=== PATIENT | female | born 1980 | race Two or more races ===

== ENCOUNTER 2016-12-24 22:46 | Observation (INO) | payer SELFPAY ==
[2016-12-24 23:35] LABS: BILIRUBIN,URINE NEGATIVE (NEG); GLUCOSE,URINE NEGATIVE (NEG); NITRITE,URINE NEGATIVE (NEG); PH,URINE 6.5; PROTEIN,URINE NEGATIVE (NEG-TRACE); UROBILINOGEN,URINE 0.2 mg/dL (0.2 mg/dL)
[2016-12-25 00:33] LABS: BACTERIA,URINE FEW /HPF (0-FEW); RBC,URINE 0 /HPF (0-2); SQUAMOUS EPITHELIAL CELL,UR FEW /LPF; WBC,URINE OCC /HPF (0-4)
== END 2016-12-25 01:45 | disposition home or self-care (01) ==
LOC: 3 SO LND 22:46
PROVIDERS: ADMIT Obstetrics & Gynecology; ATTEND Obstetrics & Gynecology
DX: O62.9 Abnormality of forces of labor, unspecified (principal); Z3A.39 39 weeks gestation of pregnancy
CPT/HCPCS: 81001; G0378; G0379

== ENCOUNTER 2016-12-26 20:17 | Inpatient (IN) | payer MEDICAID ==
[~2016-12-26] VITALS: Ht 162.6 cm; Wt 76.7 kg
[2016-12-26] MEDS: IV RINGERS,LACTATED 1000ML 1,000 ML IV SCH (21:31)
[2016-12-26 21:36] LABS: BARBITURATES NEG (NEG); BENZODIAZEPINES NEG (NEG); BILIRUBIN,URINE NEGATIVE (NEG); CANNABINOIDS NEG (NEG); COCAINE NEG (NEG); GLUCOSE,URINE NEGATIVE (NEG); METHADONE NEG (NEG); NITRITE,URINE NEGATIVE (NEG); OPIATES NEG (NEG); PH,URINE 6.5; PHENCYCLIDINE NEG (NEG); PROTEIN,URINE NEGATIVE (NEG-TRACE)
[2016-12-26 21:43] LABS: BACTERIA,URINE FEW /HPF (0-FEW); SQUAMOUS EPITHELIAL CELL,UR MANY /LPF
[2016-12-26 22:10] LABS: BASO % 0 % (0-3); EOS % 1 % (0-3); HEMATOCRIT 37.1 % (36.0-47.0); HEMOGLOBIN 12.3 g/dL (12.0-15.5); LYMPH # 1.9 x10^3/uL (1.0-4.8); LYMPH % 19 % (24-48); MEAN CORPUSCULAR HEMOGLOBIN 28 pg (25-35); MEAN CORPUSCULAR HGB CONC 33 g/dL (31-37); MEAN CORPUSCULAR VOLUME 84 fL (79-100); MONO % 8 % (0-9); NEUT % 72 % (31-73); PLATELET COUNT 196 x10^3/uL (140-400); RED BLOOD COUNT 4.41 x10^6/uL (3.50-5.40); RED CELL DISTRIBUTION WIDTH 15.1 % (11.5-14.5)
[2016-12-26] MEDS ORDERED: IV RINGERS,LACTATED 1000ML 1,000 ML IV SCH (22:48)
[2016-12-26] MEDS ORDERED: LIDOCAINE 1% PF 30 ML VIAL. INJ PRN (23:00)
[2016-12-26] MEDS ORDERED: TERBUTALINE 1 MG/ML VIAL. SQ PRN (23:00)
[2016-12-26] MEDS ORDERED: BUTORPHANOL 2 MG/ML VIAL. IV PRN ×2 (23:00)
[2016-12-26] MEDS ORDERED: fentaNYL PF VIAL 100 MCG/2 ML VIAL IV PRN (23:00)
[2016-12-26] MEDS ORDERED: OXYTOCIN 30 UNIT/500 ML PREMIX 500 ML IV PRN (23:00)
[2016-12-26] MEDS ORDERED: AMPICILLIN SODIUM 2 GM in IV NORMAL SALINE 100ML 100 ML IV ONE (23:00)
[2016-12-26] MEDS ORDERED: 0.9 % SODIUM CHLORIDE 10 ML DISP.SYRIN. IV PRN (23:00)
[2016-12-26] MEDS ORDERED: DINOPROSTONE 10 MG SUPP.VAG VG ONE (23:30)
[2016-12-26 23:58] VITALS: BP 114/83
[2016-12-27] MEDS ORDERED: AMPICILLIN SODIUM 1 GM in IV NORMAL SALINE 50ML 50 ML IV SCH (03:00)
[2016-12-27] MEDS ORDERED: OXYTOCIN 30 UNIT/500 ML PREMIX 500 ML IV PRN ×2 (07:00→16:15)
[2016-12-27] MEDS: IV RINGERS,LACTATED 1000ML 1,000 ML IV SCH (14:44)
[2016-12-27] MEDS ORDERED: BENZOCAINE 20% TOPICAL AEROSOL SPRAY 57GM CAN. TP PRN (16:15)
[2016-12-27] MEDS ORDERED: ZOLPIDEM 5 MG TABLET. PO PRN (16:15)
[2016-12-27] MEDS ORDERED: ACETAMINOPHEN 325 MG TABLET. PO PRN (16:15)
[2016-12-27] MEDS ORDERED: SIMETHICONE 80 MG TAB.CHEW PO PRN (16:15)
[2016-12-27] MEDS ORDERED: HYDROCORTISONE 1% TOPICAL OINTMENT 30GM TUBE. TP PRN (16:15)
[2016-12-27] MEDS ORDERED: 0.9 % SODIUM CHLORIDE 10 ML DISP.SYRIN. IV PRN (16:15)
[2016-12-27] MEDS ORDERED: PHENYLEPH/MINERAL OIL/PETROLAT RECTAL OINTMENT 28GM TUBE. RC PRN (16:15)
[2016-12-27] MEDS ORDERED: MAG HYDROX/ALUMINUM HYD/SIMETH 30 ML ORAL.SUSP PO PRN (16:15)
[2016-12-27] MEDS ORDERED: diphenhydrAMINE HCL 25 MG CAPSULE PO PRN (16:15)
--- NOTE | 2016-12-27 16:18 | PDOC1 ---
OB - History Hx of Present Care: Good Care Ultrasounds: Normal mid trimester US Obstetrical Complications: None Medical Complications: None Past Family/Social History * Past Medical, Surgical, Family and Obstetric Histories reviewed from chart. Blood Type: O+ Rubella: Immune RPR/VDRL: Negative GBS Status: Unknown HBsAG: Negative OB - Chief Complaint & HPI Date of Admission: Date of Admission: Dec 26, 2016 at 20:17 Chief Complaint/History : 1 EDC: Dec 28, 2016 Reason for admission: induction of labor Indication for induction: other Admission Nurse Assessment Rev: Yes Problems: OB - Admission Exam Physical Exam Vitals: VS - Last 72 Hours, by Label Date Time Temp Pulse Resp B/P (MAP) Pulse Ox O2 Delivery O2 Flow Rate FiO2 12/27/16 14:57 22 Room Air 12/26/16 23:58 98.2 91 18 114/83 (93) Room Air 98.2 HEENT: Normal, Nasal Mucosa Normal, Oropharynx Normal, Moist Membranes, Fontanelles Normal Heart: Regular Rate Lungs: Clear, Equal Abdomen: Gravid Extremities: Normal Pulses, No tenderness or swelling Reflexes: Normal Cervical Dilatation: 1cm Effacement: 25% Station: Ballotable Membranes: Intact Amniotic Fluid: Clear Accelerations: Accelerations Present Assessment/Plan Assessment/Plan TIUP Induction ACSVD Problems: ANIYAH WRIGHT MD Dec 27, 2016 16:18
--- NOTE | 2016-12-27 16:22 | PDOC ---
VAGINAL DELIVERY DATE DATE: 12/27/16 TIME: 16:20 : 3 Para: 1 EDC: Dec 28, 2016 VAGINAL DELIVERY: VTX PLACENTA: Spontaneous SEX: Female WEIGHT 3335gm Amniotic Fluid: Clear PAIN: Local EPISIOTOMY: No EXTENSION: Yes EBL 400cc COMPLICATIONS none CONDITION Stable Signs of Intrauterine Infectio: None Shoulder Dystocia: No DIAGNOSIS TIUP del Problems: ANIYAH WRIGHT MD Dec 27, 2016 16:22
[2016-12-27] MEDS ORDERED: FERROUS SULFATE 325 MG TABLET. PO SCH (17:00)
[2016-12-27] MEDS: IBUPROFEN 600 MG TABLET. PO PRN (17:49)
[2016-12-27 20:30] VITALS: BP 100/64
[2016-12-27 21:30] VITALS: BP 106/64
[2016-12-27] MEDS ORDERED: INFLUENZA VAX SCREEN BY RX. MC PRN (21:30)
[2016-12-27] MEDS: IBUPROFEN 800 MG TABLET. PO SCH (22:48)
[2016-12-28] MEDS: IBUPROFEN 800 MG TABLET. PO SCH ×2 (01:44→09:40)
[2016-12-28] MEDS: HYDROcodone/APAP 5/325MG 1 TAB TABLET PO PRN ×6 (01:56→20:33)
[2016-12-28 02:00] VITALS: BP 108/68
[2016-12-28 05:00] VITALS: BP 97/60
[2016-12-28] MEDS ORDERED: FLU VACC QS2017-18 (36MOS+)/PF 0.5 ML SYRINGE. VAX IM ONE (09:00)
[2016-12-28] MEDS: MAGNESIUM HYDROXIDE 2,400 MG/30 ML ORAL.SUSP. PO PRN (09:58)
--- NOTE | 2016-12-28 13:11 | PDOC ---
OB Progress Note Date of Service 12/28/16 Time of Evaluation 1300 Notes Pt. feeling well. Pain controlled. Lab Laboratory Tests Test 12/26/16 21:15 12/26/16 21:27 12/28/16 03:30 Urine Collection Type Unknown Urine Color Yellow Urine Clarity Clear Urine pH 6.5 Urine Specific Normanna 1.015 Urine Protein Negative mg/dL (NEG-TRACE) Urine Glucose (UA) Negative mg/dL (NEG) Urine Ketones (Stick) Negative mg/dL (NEG) Urine Blood Negative (NEG) Urine Nitrite Negative (NEG) Urine Bilirubin Negative (NEG) Urine Urobilinogen Dipstick 1.0 mg/dL (0.2 mg/dL) Urine Leukocyte Esterase Negative (NEG) Urine RBC 1-2 /HPF (0-2) Urine WBC 1-4 /HPF (0-4) Urine Squamous Epithelial Cells Many /LPF Urine Bacteria Few /HPF (0-FEW) Urine Mucus Slight /LPF Urine Opiates Screen Neg (NEG) Urine Methadone Screen Neg (NEG) Urine Barbiturates Neg (NEG) Urine Phencyclidine Screen Neg (NEG) Urine Amphetamine/Methamphetamine Neg (NEG) Urine Benzodiazepines Screen Neg (NEG) Urine Cocaine Screen Neg (NEG) Urine Cannabinoids Screen Neg (NEG) Urine Ethyl Alcohol Neg (NEG) White Blood Count 10.0 x10^3/uL (4.0-11.0) Red Blood Count 4.41 x10^6/uL (3.50-5.40) Hemoglobin 12.3 g/dL (12.0-15.5) Hematocrit 37.1 % (36.0-47.0) 34.0 % (36.0-47.0) Mean Corpuscular Volume 84 fL (79-100) Mean Corpuscular Hemoglobin 28 pg (25-35) Mean Corpuscular Hemoglobin Concent 33 g/dL (31-37) Red Cell Distribution Width 15.1 % (11.5-14.5) Platelet Count 196 x10^3/uL (140-400) Neutrophils (%) (Auto) 72 % (31-73) Lymphocytes (%) (Auto) 19 % (24-48) Monocytes (%) (Auto) 8 % (0-9) Eosinophils (%) (Auto) 1 % (0-3) Basophils (%) (Auto) 0 % (0-3) Neutrophils # (Auto) 7.3 x10^3uL (1.8-7.7) Lymphocytes # (Auto) 1.9 x10^3/uL (1.0-4.8) Monocytes # (Auto) 0.8 x10^3/uL (0.0-1.1) Eosinophils # (Auto) 0.1 x10^3/uL (0.0-0.7) Basophils # (Auto) 0.0 x10^3/uL (0.0-0.2) RPR Titer Additional Testing Non reactive (Non Reactive) Laboratory Tests Test 12/28/16 03:30 Hematocrit 34.0 % (36.0-47.0) Medications Current Medications Ringer's Solution 1,000 ml @ 125 mls/hr Q8H IV Last administered on 12/27/16 14:44; Start 12/26/16 at 20:40 Sodium Chloride (Normal Saline Flush) 3 ml QSHIFT PRN IV AFTER MEDS AND BLOOD DRAWS; Start 12/26/16 at 23:00 Ringer's Solution 1,000 ml @ 125 mls/hr Q8H IV Last administered on 12/27/16 02:04; Start 12/26/16 at 22:48 Butorphanol Tartrate (Stadol) 1 mg PRN Q1HR PRN IV mild to moderate labor pain ; Start 12/26/16 at 23:00 Butorphanol Tartrate (Stadol) 2 mg PRN Q1HR PRN IV Severe labor pain; Start at 23:00 Fentanyl Citrate (Fentanyl 2ml Vial) 100 mcg PRN Q30MIN PRN IV Severe pain Last administered on 12/27/16 14:57; Start 12/26/16 at 23:00 Terbutaline Sulfate (Brethine) 0.25 mg 1X PRN PRN SQ SEE COMMENTS; Start at 23:00; Stop 12/27/16 at 22:59; Status DC Lidocaine HCl 30 ml 1X PRN PRN INJ SEE COMMENTS Last administered on 12/27/16 18:27; Start 12/26/16 at 23:00; Stop 12/28/16 at 22:59 Ampicillin Sodium 2 gm/Sodium Chloride 100 ml @ 200 mls/hr 1X ONCE IV Last administered on 9/28/17at 10:53; Start 12/26/16 at 23:00; Stop 12/26/16 at 23:29 ; Status DC Ampicillin Sodium 1 gm/Sodium Chloride 50 ml @ 100 mls/hr Q4H IV Last administered on 12/27/16 14:57; Start 12/27/16 at 03:00 Oxytocin/Sodium Chloride 500 ml @ 0 mls/hr CONT PRN IV SEE I/O RECORD Last administered on 12/27/16 12:52; Start 12/27/16 at 07:00 Oxytocin/Sodium Chloride 500 ml @ 0 mls/hr CONT PRN PRN IV Post delivery bleeding; Start 12/26/16 at 23:00 Ibuprofen (Motrin) 600 mg PRN Q6HRS PRN PO MODERATE PAIN Last administered on 17:49; Start 12/26/16 at 23:00 Dinoprostone (Cervidil) 10 mg 1X ONCE VG Last administered on 12/26/16 23:16 ; Start 12/26/16 at 23:30; Stop 12/26/16 at 23:31; Status DC Sodium Chloride (Normal Saline Flush) 10 ml QSHIFT PRN IV AFTER MEDS AND BLOOD DRAWS; Start 12/27/16 at 16:15 Oxytocin/Sodium Chloride 500 ml @ 62.5 mls/hr CONT PRN IV SEE I/O RECORD; Start 12/27/16 at 16:15; Stop 12/28/16 at 00:14; Status DC Acetaminophen (Tylenol) 650 mg PRN Q6HRS PRN PO MILD PAIN / TEMP; Start at 16:15 Ibuprofen (Motrin) 800 mg Q8HRS PO Last administered on 12/28/16 09:40; Start 12/27/16 at 22:00 Magnesium Hydroxide (Milk Of Magnesia) 2,400 mg PRN DAILY PRN PO CONSTIPATION Last administered on 12/28/16 09:58; Start 12/27/16 at 16:15 Al Hydroxide/Mg Hydroxide (Mylanta Plus Xs) 30 ml PRN Q4HRS PRN PO HEARTBURN / GAS; Start 12/27/16 at 16:15 Simethicone (Gas-X) 80 mg PRN AFTMEALHC PRN PO GAS / BLOATING; Start 12/27/16 at 16:15 Diphenhydramine HCl (Benadryl) 25 mg PRN Q6HRS PRN PO ITCHING; Start 12/27/16 at 16:15 Benzocaine (Americaine) 1 spray PRN QID PRN TP TOPICAL PAIN; Start 12/27/16 at 16:15 Phenyleph/Shark Oil/Min Oil/Petrol (Preparation H) 1 brian PRN QID PRN RC RECTAL PAIN; Start 12/27/16 at 16:15 Hydrocortisone (Cortaid) 1 brian PRN QID PRN TP RECTAL PAIN; Start 12/27/16 at 16 :15 Ferrous Sulfate (Feosol) 325 mg BIDWMEALS PO Last administered on 12/28/16 09: 40; Start 12/27/16 at 17:00 Zolpidem Tartrate (Ambien) 5 mg PRN QHS PRN PO INSOMNIA, MAY REPEAT X1; Start 12/27/16 at 16:15 Info (Do NOT chart on this placeholder) 1 ea 1X PRN PRN MC SEE COMMENTS; Start 12/27/16 at 16:15 Acetaminophen/ Hydrocodone Bitart (Lortab 5/325) 1 tab PRN Q4HRS PRN PO PAIN Last administered on 12/28/16 09:41; Start 12/27/16 at 16:15 Info (Do NOT chart on this placeholder) 1 each PRN 1X PRN MC SEE COMMENTS; Start 12/27/16 at 21:30; Status UNV Influenza Virus Vaccine Quadrival (Fluarix Quad [id number] Syringe) 0.5 ml ONCE ONCE VAX IM Last administered on 12/28/16 09:42; Start 12/28/16 at 09:00; Stop 12/28/16 at 09:01; Status DC Exam Abd: soft, non tender, fundus firm Assessment PPD#1 s/p Plan of Care: Continue current Tx, Mgmt JUSTIN ARMENDARIZ Jr, MD Dec 28, 2016 13:11
[2016-12-28 14:05] VITALS: BP 89/55
[2016-12-28] MEDS: IBUPROFEN 600 MG TABLET. PO PRN (16:29)
[2016-12-28 21:30] VITALS: BP 106/67
[2016-12-29] MEDS: HYDROcodone/APAP 5/325MG 1 TAB TABLET PO PRN (01:44)
[2016-12-29 05:35] VITALS: BP 110/62
[2016-12-29 09:20] VITALS: BP 107/72
[2016-12-29] MEDS: MAGNESIUM HYDROXIDE 2,400 MG/30 ML ORAL.SUSP. PO PRN (10:01)
[2016-12-29] MEDS: IBUPROFEN 800 MG TABLET. PO SCH (11:35)
[2016-12-29 18:40] VITALS: BP 110/77
--- NOTE | 2016-12-29 18:46 | PDOC3 ---
OB DISCHARGE SUMMARY DATE OF ADMISSION: 12/27/16 DATE OF DISCHARGE: 12/29/16 REASON FOR ADMISSION: Induction of labor PROCEDURES: None INTRAPARTUM PROCEDURES: Spontanous Vag Deliv PROCEDURES: None OPERATIONS: None DISCHARGE DIAGNOSIS: Term Delivered DISCHARGE INFORMATION: Activity, Diet HOSPITAL COURSE unremarkable CONDITION AT DISCHARGE Stable ANIYAH WRIGHT MD Dec 29, 2016 18:46
[2016-12-29] MEDS ORDERED: HYDR-971 PO (18:48)
[2016-12-29] MEDS ORDERED: NAPR-683 PO (18:48)
== END 2016-12-29 20:10 | disposition home or self-care (01) | DRG 775 ==
LOC: OBSVTOIN 20:17 → 3 SO LND 20:17 → 3 NORTH 12-27 20:30
PROVIDERS: ADMIT Specialist; ATTEND Specialist
PROC: 10E0XZZ Delivery of Products of Conception, External Approach (ICD-10-PCS; principal; 2016-12-26)
PROC: 0HQ9XZZ Repair Perineum Skin, External Approach (ICD-10-PCS; 2016-12-26)
DX: O70.0 First degree perineal laceration during delivery (principal); Z37.0 Single live birth; Z3A.00 Weeks of gestation of pregnancy not specified
CPT/HCPCS: 36415; 80307; 81001; 85014; 85025; 86593; 86850; 86900; 86901; 90686; J0290; J2590; J3010; J7120; G0479